=== PATIENT | male | born 1960 | race Caucasian/White ===

== ENCOUNTER → 2016-12-06 | Outpatient (CLI) | payer OTHER ==
[~2016-12-06] MED LIST: CLAR1TAB2 PO; COUM2.5T17 PO; IBUP200T45 PO; LOSARTAN PO; MORP15TASA PO; MULT1TAB10 PO; PERC5TAB12 PO; TRAM50TA2 PO; WARF-23
[2016-12-06 11:33] LABS: MEAN CORPUSCULAR HEMOGLOBIN 32.5 pg (27.0-33.0); MEAN CORPUSCULAR VOLUME 88.8 fl (80.0-96.0); RED CELL DISTRIBUTION WIDTH 12.7 % (11.5-14.5); WHITE BLOOD COUNT 5.4 K/mm3 (4.0-10.0)
[2016-12-06 11:36] LABS: MEAN CORPUSCULAR HGB CONC 36.1 g/dl (32.0-36.5)
[2016-12-06 11:47] LABS: INR 0.94
[2016-12-06 11:51] LABS: ALBUMIN 3.8 GM/DL (3.2-5.2); ALBUMIN/GLOBULIN RATIO 1.19 (1.00-1.93); ALKALINE PHOSPHATASE 107 U/L (45-117); ALT/SGPT 48 U/L (12-78); ANION GAP 7 MEQ/L (8-16); AST/SGOT 23 U/L (15-37); BILIRUBIN,TOTAL 0.5 MG/DL (0.2-1.0); BLOOD UREA NITROGEN 20 MG/DL (7-18); CALCIUM LEVEL 8.8 MG/DL (8.5-10.1); CARBON DIOXIDE LEVEL 30 MEQ/L (21-32); CHLORIDE LEVEL 106 MEQ/L (98-107); CREATININE FOR GFR 0.92 MG/DL (0.70-1.30); GLOMERULAR FILTRATION RATE > 60.0 (>56); GLUCOSE, FASTING 95 MG/DL (70-105); POTASSIUM SERUM 4.2 MEQ/L (3.5-5.1); SODIUM LEVEL 143 MEQ/L (136-145)
--- NOTE | 2016-12-06 12:18 | REP ---
CHEST X-RAY: Two views. HISTORY: Hypertension. No comparison radiographs. FINDINGS: The lungs are well inflated and clear. There is benign pleural thickening bilaterally. Pleural angles themselves are sharp. There are degenerative changes in the thoracic spine and aorta. Heart size is normal. Pulmonary vasculature is not increased. IMPRESSION: No acute disease. Signed by Juan Ramon Calvo MD 12/06/2016 05:23 P
--- NOTE | 2016-12-06 18:59 | ECGEPIP ---
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
== END ==
LOC: M ADMPAT 10:22
PROVIDERS: ATTEND Orthopaedic Surgery
DX: Z01.818 Encounter for other preprocedural examination (principal); M17.12 Unilateral primary osteoarthritis, left knee

== ENCOUNTER 2016-12-18 10:48 | Inpatient (IN) | payer OTHER ==
[2016-12-06 11:14] VITALS: BP 120/84
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
[~2016-12-18] VITALS: Ht 185.4 cm; Wt 124.7 kg
[~2016-12-18 10:48] MED LIST changes: -COUM2.5T17 PO; -MORP15TASA PO; -PERC5TAB12 PO; -WARF-23
[2016-12-18] MEDS ORDERED: LR 1,000 ML IV ONE (11:00)
[2016-12-18] MEDS ORDERED: LIDOCAINE 1% MDV 20ML VIAL SQ PRN (11:00)
[2016-12-18] MEDS ORDERED: ACETAMINOPHEN 500 MG TAB PO ONE (11:00)
[2016-12-18] MEDS ORDERED: WARF-23 (11:16)
[2016-12-18] MEDS ORDERED: fentaNYL 100 MCG/2 ML INJECTION (J3010) As Ordered ONE (12:13)
[2016-12-18] MEDS ORDERED: MIDAZOLAM INJ 2 MG/2 ML VIAL (J2250) As Ordered ONE (12:13)
[2016-12-18] MEDS ORDERED: MIDAZOLAM INJ 2 MG/2 ML VIAL (J2250) IV ONE (12:45)
[2016-12-18] MEDS ORDERED: fentaNYL 100 MCG/2 ML INJECTION (J3010) IV ONE (12:45)
[2016-12-18] MEDS ORDERED: EPINEPHrine INJ 1 MG/ML 1ML AMP As Ordered ONE (12:58)
[2016-12-18] MEDS ORDERED: ceFAZolin 1GM INJ (J0690) As Ordered ONE (12:58)
[2016-12-18] MEDS ORDERED: TRANEXAMIC ACID 100 MG/ML 10ML VIAL As Ordered ONE (12:58)
[2016-12-18] MEDS ORDERED: BUPIVACAINE LIPOSOME/PF 1.3% 20 ML VIAL (13.3MG/ML)(EXPAREL) As Ordered ONE (12:59)
[2016-12-18] MEDS ORDERED: ROPIvacaine 0.5% 30 ML INJECTION (J2795) ONE (13:09)
[2016-12-18] MEDS ORDERED: dexameTHASONE 10 MG/1 ML VIAL PRES.FREE (J1100) ONE (13:09)
[2016-12-18] MEDS ORDERED: MORPHINE 1MG/ML IN 0.9% NACL 100ML IV BAG As Ordered ONE (15:08)
[2016-12-18] MEDS ORDERED: NALBUPHINE HCL 10 MG/ML AMP (J2300) IV PRN (15:30)
[2016-12-18] MEDS ORDERED: EPIDURAL/PCA KEYS XX PRN (15:30)
[2016-12-18] MEDS ORDERED: NALOXONE INJ 0.4 MG/1 ML VIAL (J2310) IV PRN (15:30)
[2016-12-18] MEDS ORDERED: MORPHINE 1MG/ML IN 0.9% NACL 100ML IV BAG IV PRN (15:30)
[2016-12-18] MEDS ORDERED: ACETAMINOPHEN TAB 650MG DOSE (2X325MG) PO PRN (15:30)
[2016-12-18] MEDS ORDERED: fentaNYL 100 MCG/2 ML INJECTION (J3010) IV PRN (15:30)
[2016-12-18] MEDS ORDERED: FLEET ENEMA PR PRN (15:30)
[2016-12-18] MEDS ORDERED: LR 1,000 ML IV SCH (15:30)
[2016-12-18] MEDS ORDERED: diphenhydrAMINE INJ 50MG/ML VIAL (J1200) IV PRN (15:30)
[2016-12-18] MEDS ORDERED: ONDANSETRON 4MG/2ML VIAL (J2405) IV PRN ×2 (15:30)
[2016-12-18 16:30] VITALS: BP 135/74
[2016-12-18 17:00] VITALS: BP_SYST 132; BP_SYST 134; BP_DIAS 76; BP_DIAS 80
[2016-12-18] MEDS ORDERED: WARFARIN SOD 5 MG TAB PO ONE (17:00)
[2016-12-18 18:00] VITALS: BP 134/89
--- NOTE | 2016-12-18 18:17 | RO ---
DATE OF PROCEDURE: 12/18/2016 PREPROCEDURE DIAGNOSIS: Left knee degenerative arthritis. POSTPROCEDURE DIAGNOSIS: Left knee degenerative arthritis. OPERATIVE PROCEDURE: Left total knee arthroplasty using a size 4 cruciate retaining femoral component with a size 4 tibial tray and a 10 mm rotating platform polyethylene component with a 35 mm polyethylene button. All components were cemented. Prosthesis made by [employer], is a PFC knee. SURGEON: Myrna Godoy MD SR. DIRECTOR: Ayo Ribera ANESTHESIA: Spinal with left femoral nerve block. COMPLICATIONS: None. SPECIMENS: Joint surface. ESTIMATED BLOOD LOSS: Less than 20 mL. TOURNIQUET TIME: 61 minutes. DESCRIPTION OF PROCEDURE: Antibiotics were given intravenously preoperatively and then a left femoral nerve block and then a spinal anesthetic was induced. A tourniquet was placed left upper thigh and not inflated. Left lower extremity was prepped and draped in the usual sterile fashion and the leg elevated and after an appropriate time out, the tourniquet was inflated. Then, a longitudinal incision was made for a medial parapatellar arthrotomy approach to the knee. Bovie cautery was used to coagulate the crossing vessels. Subperiosteal dissection of the proximal medial tibia and proximal lateral tibia was performed and then we everted the patella and flexed the knee. Drill placed down the center of the femoral canal followed by the intramedullary nenita and the distal femoral cutting jig set at 5 degrees valgus cut at 10 mm resection level for a left knee. The block was pinned into position. Distal femoral cut performed. AP sizing jig measured for a size 4 component. The 3 degrees external rotation block was pinned into position, followed by the four-in-one block and then the anterior-posterior chamfer cuts were performed taking great care to protect the surrounding soft tissues. We then exposed the proximal tibia and used the extramedullary device to estimate being in line parallel to the mechanical axis of the tibia, referenced off the medial tibial condyle at 4 mm resection level. Block was pinned into position. Secondary check with the extramedullary nenita confirmed what appeared to be parallel to the mechanical axis. We then performed the proximal tibial osteotomy. Laminar curbing stonecutter was placed laterally and we performed a completion medial meniscectomy with debridement of posterior and medial osteophytes. We then placed a laminar curbing stonecutter medially and performed a completion lateral meniscectomy with debridement of posterior and lateral osteophytes. Spacer block, 10 mm, fit nicely in flexion and extension with good symmetry between flexion and extension gaps and there was good stability to varus-valgus stress testing. We then exposed the proximal tibia, sized for a #4 tibial tray which was pinned into position followed by the reamer and broach. Then the trial polyethylene and the trial femoral component, brought the knee into extension, everted the patella, performed a patellar osteotomy, sized for a 35 button. The lug holes were drilled. Patellar component was placed and the patellofemoral tracking was anatomic. We then drilled the lug holes for the femur, removed all the trial components, injected Exparel around the pericapsular tissues posteriorly and medially and laterally as well as the capsular incision tissues and then Mr. Ayo Ribera mixed the cement on the back table as I prepared the bony surfaces for cementing with a copious amount of pulsatile lavage irrigant solution. Mr. Ribera was also critical to the success of the procedure by helping to manipulate the knee and perform appropriate soft tissue retraction so I could perform the operation smoothly and efficiently. Once all the bony surfaces were thoroughly dried, I cemented the tibial tray, removed excess cement, placed the polyethylene then cemented the femoral component, removed excess cement, brought the knee into extension, everted the patella and cemented the patellar button into position and held it with a clamp, removed all the excess cement and held this position until the cemented hardened and as we did so we copiously pulsatile lavage irrigated out the knee joint once again and then instilled tranexamic acid and began closing the arthrotomy at the apex with two #0 PDS sutures and then one medial parapatellar stitch was placed and then we closed the capsule with a running #1 PDS Stratafix, double-armed. The tourniquet was released once the capsule had been closed and we irrigated between layers, closed the deep subdermal tissues with interrupted PDS sutures. The skin was closed with yue, closed with Adaptic dry sterile bulky dressing and then he was transferred to the recovery room in stable condition. There were no intraoperative complications.
[2016-12-18] MEDS: LOSARTAN 50 MG TAB PO SCH (18:18)
[2016-12-18] MEDS: hydroCHLOROthiazide 12.5 MG CAPSULE PO SCH (18:18)
[2016-12-18] MEDS: LR 1,000 ML IV SCH (18:22)
[2016-12-18 22:00] VITALS: BP 144/88
[2016-12-19] VITALS (7 sets, daily range): BP systolic 113–167; BP diastolic 73–84
[2016-12-19] MEDS: LR 1,000 ML IV SCH (04:00)
[2016-12-19] MEDS ORDERED: PERCOCET 5MG/325MG TAB PO PRN (06:45)
[2016-12-19] MEDS ORDERED: ONDANSETRON 4 MG TAB (S0181) PO PRN (06:45)
[2016-12-19 07:03] LABS: MEAN CORPUSCULAR HEMOGLOBIN 31.1 pg (27.0-33.0); MEAN CORPUSCULAR HGB CONC 35.1 g/dl (32.0-36.5); MEAN CORPUSCULAR VOLUME 88.5 fl (80.0-96.0); RED CELL DISTRIBUTION WIDTH 12.8 % (11.5-14.5); WHITE BLOOD COUNT 15.8 10^3/uL (4.0-10.0)
[2016-12-19 07:15] LABS: INR 1.01
[2016-12-19 07:39] LABS: ANION GAP 9 MEQ/L (8-16); BLOOD UREA NITROGEN 12 MG/DL (7-18); CALCIUM LEVEL 8.8 MG/DL (8.5-10.1); CARBON DIOXIDE LEVEL 27 MEQ/L (21-32); CHLORIDE LEVEL 104 MEQ/L (98-107); CREATININE FOR GFR 0.82 MG/DL (0.70-1.30); GLOMERULAR FILTRATION RATE > 60.0 (>56); GLUCOSE, FASTING 134 MG/DL (70-105); POTASSIUM SERUM 4.1 MEQ/L (3.5-5.1); SODIUM LEVEL 140 MEQ/L (136-145)
[2016-12-19] MEDS: MOM 30ML SUSPENSION UDC PO SCH (08:47)
[2016-12-19] MEDS: MIRALAX *UNIT DOSE* 17GM PACKET PO SCH (08:47)
[2016-12-19] MEDS: hydroCHLOROthiazide 12.5 MG CAPSULE PO SCH (08:48)
[2016-12-19] MEDS: LOSARTAN 50 MG TAB PO SCH (08:48)
[2016-12-19] MEDS: SENOKOT S TAB PO SCH ×2 (08:48→21:27)
[2016-12-19] MEDS: PERCOCET 5MG/325MG TAB PO PRN ×4 (08:49→23:59)
[2016-12-19] MEDS ORDERED: MIDAZOLAM INJ 5 MG/ML VIAL (J2250) As Ordered ONE (10:52)
[2016-12-19] MEDS ORDERED: fentaNYL 100 MCG/2 ML INJECTION (J3010) As Ordered ONE (10:52)
[2016-12-19] MEDS ORDERED: PHENYLephrine HCL 500 MCG/5 ML (100MCG/ML) SYRINGE (J2370) As Ordered ONE (10:53)
[2016-12-19] MEDS ORDERED: PROPOFOL 200 MG/20 ML VIAL As Ordered ONE (10:53)
[2016-12-19] MEDS ORDERED: LIDOCAINE 2% INJ 100 MG/5 ML SDV (FOR ANES.) As Ordered ONE (10:53)
--- NOTE | 2016-12-19 15:23 | REP ---
LEFT KNEE, TWO VIEWS: Two views of the left knee performed. There is a total knee prosthesis in good position. The structures are well aligned. Metallic skin yue are seen anteriorly. The visualized osseous structures are intact. Signed by Cristian Chester MD 12/19/2016 04:17 P
[2016-12-19] MEDS ORDERED: WARFARIN SOD 5 MG TAB PO ONE (17:00)
[2016-12-19] MEDS: MORPHINE 15 MG SA TAB PO SCH (21:27)
[2016-12-20] MEDS: PERCOCET 5MG/325MG TAB PO PRN ×5 (03:58→22:14)
[2016-12-20 06:00] VITALS: BP 121/81
[2016-12-20 07:10] LABS: MEAN CORPUSCULAR HEMOGLOBIN 31.1 pg (27.0-33.0); MEAN CORPUSCULAR HGB CONC 34.6 g/dl (32.0-36.5); MEAN CORPUSCULAR VOLUME 89.9 fl (80.0-96.0); RED CELL DISTRIBUTION WIDTH 13.1 % (11.5-14.5); WHITE BLOOD COUNT 13.1 10^3/uL (4.0-10.0)
[2016-12-20 07:23] LABS: INR 1.14
[2016-12-20] MEDS ORDERED: ENOXAPARIN 40 MG/0.4 ML SYRINGE (J1650) SC ONE (07:30)
[2016-12-20] MEDS ORDERED: COUM2.5T17 PO (07:35)
[2016-12-20] MEDS ORDERED: PERC5TAB12 PO (07:35)
[2016-12-20 07:41] LABS: ANION GAP 5 MEQ/L (8-16); BLOOD UREA NITROGEN 11 MG/DL (7-18); CALCIUM LEVEL 8.6 MG/DL (8.5-10.1); CARBON DIOXIDE LEVEL 30 MEQ/L (21-32); CHLORIDE LEVEL 102 MEQ/L (98-107); CREATININE FOR GFR 0.85 MG/DL (0.70-1.30); GLOMERULAR FILTRATION RATE > 60.0 (>56); GLUCOSE, FASTING 121 MG/DL (70-105); POTASSIUM SERUM 3.6 MEQ/L (3.5-5.1); SODIUM LEVEL 137 MEQ/L (136-145)
[2016-12-20] MEDS: MOM 30ML SUSPENSION UDC PO SCH (08:31)
[2016-12-20] MEDS: MIRALAX *UNIT DOSE* 17GM PACKET PO SCH (08:31)
[2016-12-20] MEDS: MORPHINE 15 MG SA TAB PO SCH ×2 (08:31→20:46)
[2016-12-20] MEDS: LOSARTAN 50 MG TAB PO SCH (08:32)
[2016-12-20] MEDS: hydroCHLOROthiazide 12.5 MG CAPSULE PO SCH (08:32)
[2016-12-20] MEDS: SENOKOT S TAB PO SCH ×2 (08:33→20:46)
[2016-12-20] MEDS ORDERED: MORP15TASA PO (09:04)
[2016-12-20] MEDS ORDERED: MORPHINE 4 MG/ML 1ML SYRINGE IV ONE (10:45)
[2016-12-20 14:00] VITALS: BP 150/85
[2016-12-20] MEDS ORDERED: WARFARIN SOD 5 MG TAB PO ONE (17:00)
[2016-12-21] VITALS: BP 134/83
[2016-12-21] MEDS: PERCOCET 5MG/325MG TAB PO PRN ×3 (04:39→15:40)
[2016-12-21 06:00] VITALS: BP 148/63
[2016-12-21 07:12] LABS: MEAN CORPUSCULAR HEMOGLOBIN 31.4 pg (27.0-33.0); MEAN CORPUSCULAR HGB CONC 34.7 g/dl (32.0-36.5); MEAN CORPUSCULAR VOLUME 90.7 fl (80.0-96.0); WHITE BLOOD COUNT 11.2 10^3/uL (4.0-10.0)
[2016-12-21 07:26] LABS: INR 1.11
[2016-12-21 07:44] LABS: ANION GAP 9 MEQ/L (8-16); BLOOD UREA NITROGEN 14 MG/DL (7-18); CALCIUM LEVEL 8.5 MG/DL (8.5-10.1); CARBON DIOXIDE LEVEL 29 MEQ/L (21-32); CHLORIDE LEVEL 100 MEQ/L (98-107); CREATININE FOR GFR 0.92 MG/DL (0.70-1.30); GLOMERULAR FILTRATION RATE > 60.0 (>56); GLUCOSE, FASTING 110 MG/DL (70-105); POTASSIUM SERUM 4.1 MEQ/L (3.5-5.1); SODIUM LEVEL 138 MEQ/L (136-145)
[2016-12-21] MEDS ORDERED: ENOXAPARIN 40 MG/0.4 ML SYRINGE (J1650) SC ONE (08:00)
[2016-12-21] MEDS ORDERED: INFLUENZA QUADRIVALENT PF VACCINE 0.5ML SYRINGE (90686) IM ONE (09:00)
[2016-12-21 09:17] VITALS: BP 148/63
[2016-12-21] MEDS: MOM 30ML SUSPENSION UDC PO SCH (09:17)
[2016-12-21] MEDS: hydroCHLOROthiazide 12.5 MG CAPSULE PO SCH (09:17)
[2016-12-21] MEDS: LOSARTAN 50 MG TAB PO SCH (09:17)
[2016-12-21] MEDS: MORPHINE 15 MG SA TAB PO SCH (09:17)
[2016-12-21] MEDS: MIRALAX *UNIT DOSE* 17GM PACKET PO SCH (09:18)
[2016-12-21] MEDS: SENOKOT S TAB PO SCH (09:18)
--- NOTE | 2016-12-25 15:44 | DSES ---
DATE OF ADMISSION: 12/18/2016 DATE OF DISCHARGE: 12/21/2016 ADMISSION DIAGNOSIS: Osteoarthritis left knee. OTHER DIAGNOSES: Hypertension, seasonal allergies. ATTENDING PHYSICIAN: Dr. Godoy. SURGERY PERFORMED: Left total knee arthroplasty. DISCHARGE DIAGNOSIS: Osteoarthritis left knee status post left total knee arthroplasty. HISTORY: This is a pleasant 56-year-old male patient with progressively worsening left knee pain and stiffness who failed to improve with conservative management and he was admitted for elective left knee replacement. HOSPITAL COURSE: The patient was admitted on day of surgery, underwent a left total knee arthroplasty which was uneventful. He did well in the postoperative period. His hospital course was without complications. He was up with physical therapy per their protocol. His pain was controlled. On the day of discharge he was doing well, weightbearing as tolerated on his left lower extremity. He will move his left knee to prevent stiffness. He will use adjusted dose Coumadin and MARYA stockings for 30 days postoperatively for DVT prophylaxis. He will resume his preoperative medications and diet. He was given instructions to include but not limited to wound monitoring and activity limitations. Please refer to the medical record for further details.
== END 2016-12-21 17:35 | disposition home or self-care (01) | DRG 302 ==
LOC: M OR 10:48 → M MS5PR 16:15
PROVIDERS: ADMIT Orthopaedic Surgery; ATTEND Orthopaedic Surgery
PROC: 0SRC0J9 Replacement of Right Knee Joint with Synthetic Substitute, Cemented, Open Approach (ICD-10-PCS; principal; 2016-12-18 13:00)
DX: M17.12 Unilateral primary osteoarthritis, left knee (principal); Z79.01 Long term (current) use of anticoagulants; Z79.899 Other long term (current) drug therapy; I10 Essential (primary) hypertension

== ENCOUNTER → 2016-12-25 | Outpatient (REF) | payer OTHER ==
[~2016-12-25] MED LIST changes: +COUM2.5T17 PO; +MORP15TASA PO; +PERC5TAB12 PO; +WARF-23
[2016-12-25 16:28] LABS: INR 1.39
== END ==
LOC: M SHH 15:36
PROVIDERS: ATTEND Nurse Practitioner Family
DX: Z79.01 Long term (current) use of anticoagulants (principal)

== ENCOUNTER → 2016-12-28 | Outpatient (REF) | payer OTHER ==
[2016-12-28 15:58] LABS: INR 1.65
== END ==
LOC: M SHH 15:25
PROVIDERS: ATTEND Nurse Practitioner Family
DX: Z79.01 Long term (current) use of anticoagulants (principal)

== ENCOUNTER → 2017-01-01 | Outpatient (REF) | payer OTHER ==
[2017-01-01 12:45] LABS: INR 2.1
== END ==
LOC: M LABDRAW1 10:37
PROVIDERS: ATTEND Nurse Practitioner Family
DX: Z79.01 Long term (current) use of anticoagulants (principal)

== ENCOUNTER → 2017-01-04 | Outpatient (REF) | payer OTHER ==
[2017-01-04 14:44] LABS: INR 1.86
== END ==
LOC: M SHH 14:02
PROVIDERS: ATTEND Nurse Practitioner Family
DX: Z79.01 Long term (current) use of anticoagulants (principal)

== ENCOUNTER → 2017-01-08 | Outpatient (REF) | payer OTHER ==
[2017-01-08 12:18] LABS: INR 2.29
== END ==
LOC: M SHH 11:45 → M LAB REF 11:45
PROVIDERS: ATTEND Nurse Practitioner Family
DX: Z79.01 Long term (current) use of anticoagulants (principal)

== ENCOUNTER → 2017-06-08 | Outpatient (CLI) | payer OTHER | LOC: M RAD 17:46 | DX: M50.321 Other cervical disc degeneration at C4-C5 level (principal); M50.322 Other cervical disc degeneration at C5-C6 level; M25.512 Pain in left shoulder | CPT/HCPCS: 72052 ==

== ENCOUNTER 2017-06-13 08:58 | Emergency (ER) | payer OTHER | END 2017-06-13 12:23 | disposition home or self-care (01) | LOC: M ED 08:58 | DX: S06.0X9A Concussion with loss of consciousness of unspecified duration, initial encounter (principal); W00.9XXA Unspecified fall due to ice and snow, initial encounter; Y92.89 Other specified places as the place of occurrence of the external cause; I10 Essential (primary) hypertension; G47.33 Obstructive sleep apnea (adult) (pediatric); Z79.899 Other long term (current) drug therapy | CPT/HCPCS: 70450 ==

== ENCOUNTER 2018-06-07 07:56 | Day surgery (SDC) | payer OTHER ==
[~2018-06-07] VITALS: Ht 185.4 cm; Wt 125.2 kg
[~2018-06-07 07:56] MED LIST changes: +ATOR1TAB19 PO; +LOSARTAN-HCTZ PO; +ZOFR4TAB14 PO
[2018-06-07] MEDS ORDERED: NS 1,000 ML IV ONE (08:30)
[2018-06-07] MEDS ORDERED: LIDOCAINE 2% INJ 100 MG/5 ML SDV (FOR ANES.) As Ordered ONE (09:05)
[2018-06-07] MEDS ORDERED: PROPOFOL 500 MG/50 ML VIAL As Ordered ONE (09:05)
--- NOTE | 2018-06-07 09:23 | ROOR ---
Patient Name: Franklin Ventura Procedure Date: 06/07/2018 9:02 AM Date of : 1960 Age: 57 Room: [facility] Gender: Male Note Status: Finalized Procedure: Colonoscopy Indications: Positive fecal immunochemical test Providers: Qamar RO MD Referring MD: Alejandra Yost MD Requesting Provider: Medicines: Monitored Anesthesia Care Complications: No immediate complications. Procedure: Pre-Anesthesia Assessment: - The heart rate, respiratory rate, oxygen saturations, blood pressure, adequacy of pulmonary ventilation, and response to care were monitored throughout the procedure. The Colonoscope was introduced through the anus and advanced to the cecum, identified by appendiceal orifice and ileocecal valve. The colonoscopy was performed without difficulty. The patient tolerated the procedure well. The quality of the bowel preparation was good. Findings: The perianal and digital rectal examinations were normal. Two sessile polyps were found in the ascending colon. The polyps were diminutive in size. These polyps were removed with a cold snare. Resection and retrieval were complete. Small Internal Hemorrhoids. The exam was otherwise without abnormality on direct and retroflexion views. Impression: - Two diminutive polyps in the ascending colon, removed with a cold snare. Resected and retrieved. - Small Internal Hemorrhoids. - The examination was otherwise normal on direct and retroflexion views. Recommendation: - Repeat colonoscopy in 5 years for surveillance. Qamar Ro MD Qamar RO MD 06/07/2018 9:22:38 AM This report has been signed electronically. Number of Addenda: 0 Note Initiated On: 06/07/2018 9:02 AM Estimated Blood Loss: Estimated blood loss: none.
[2018-06-07 09:52] VITALS: BP 148/90
== END 2018-06-07 09:54 | disposition home or self-care (01) ==
LOC: M OPP 07:56
PROVIDERS: ATTEND Internal Medicine Gastroenterology
DX: D12.2 Benign neoplasm of ascending colon (principal); R19.5 Other fecal abnormalities; G47.30 Sleep apnea, unspecified; Z79.899 Other long term (current) drug therapy; Z80.0 Family history of malignant neoplasm of digestive organs; Z80.3 Family history of malignant neoplasm of breast

== ENCOUNTER → 2019-11-26 | Outpatient (CLI) | payer OTHER, BC ==
[~2019-11-26] MED LIST changes: +ECOT81TA5 PO; +LOSA100T50 PO; +ZYRTTAB8 PO
== END ==
LOC: M LABSMTC 10:35
PROVIDERS: ATTEND Anesthesiology
DX: Z11.59 Encounter for screening for other viral diseases (principal)

== ENCOUNTER → 2019-11-26 | Outpatient (CLI) | payer OTHER, SELFPAY ==
[2019-11-26 13:02] LABS: HEMATOCRIT 51.6 % (42.0-52.0); HEMOGLOBIN 17.4 g/dl (13.5-17.5); MEAN CORPUSCULAR HEMOGLOBIN 31.4 pg (27.0-33.0); MEAN CORPUSCULAR HGB CONC 33.7 g/dl (32.0-36.5); MEAN CORPUSCULAR VOLUME 93.1 fl (80.0-96.0); PLATELET COUNT, AUTOMATED 210 10^3/uL (150-450); RED BLOOD COUNT 5.54 10^6/uL (4.30-6.10)
[2019-11-26 13:12] LABS: INR 0.92; PROTHROMBIN TIME 12.5 SECONDS (11.8-14.0)
[2019-11-26 13:25] LABS: ALBUMIN 3.6 GM/DL (3.2-5.2); ALT/SGPT 65 U/L (12-78); BILIRUBIN,TOTAL 0.4 MG/DL (0.2-1.0); BLOOD UREA NITROGEN 12 MG/DL (7-18); CALCIUM LEVEL 8.7 MG/DL (8.8-10.2); CARBON DIOXIDE LEVEL 25 MEQ/L (21-32); CHLORIDE LEVEL 113 MEQ/L (98-107); CREATININE FOR GFR 0.97 MG/DL (0.70-1.30); GLOMERULAR FILTRATION RATE > 60.0 (>49); GLUCOSE, FASTING 134 MG/DL (70-100); POTASSIUM SERUM 4.1 MEQ/L (3.5-5.1); SODIUM LEVEL 144 MEQ/L (136-145); TOTAL PROTEIN 6.9 GM/DL (6.4-8.2)
[2019-11-26 13:41] LABS: ERYTHROCYTE SEDIMENTATION RATE 4 mm/hr (0-20)
--- NOTE | 2019-12-04 14:46 | ECGEPIP ---
[facility] Test Date: 2019-11-26 Pat Name: EDILSON GOMEZ Department: Room: - Gender: Male Surgery Attendant: AYAN : 1960 Requested By: Myrna Rodriguez Order Number: [id number] Reading MD: Edilson Anthony Measurements Intervals [place] Rate: 72 P: 44 OR: 153 QRS: -7 QRSD: 101 T: 27 QT: 367 QTc: 402 Interpretive Statements SINUS RHYTHM NORMAL ECG SEE SCANNED DOWNTIME REPORT
--- NOTE | 2019-12-16 11:10 | REP ---
CHEST X-RAY CLINICAL: Preoperative assessment. TECHNIQUE: PA and lateral. COMPARISON: 12/06/2016. FINDINGS: Mediastinal and cardiac silhouette are normal. Lung otero are clear. No acute consolidation, effusion, or pneumothorax. Skeletal structures are intact. IMPRESSION: Normal chest x-ray. No acute cardiopulmonary process or focal consolidation. MTDD
== END ==
LOC: M LAB 11:08
PROVIDERS: ATTEND Orthopaedic Surgery
DX: M17.11 Unilateral primary osteoarthritis, right knee (principal)

== ENCOUNTER 2019-12-01 08:35 | Inpatient (IN) | payer OTHER, BC ==
--- NOTE | 2019-11-29 21:42 | HPE ---
DATE OF ANTICIPATED ADMISSION: 12/01/2019 ATTENDING PHYSICIAN: Dr. Godoy CHIEF COMPLAINT: Right knee pain and stiffness. HISTORY: Patient is a 59-year-old male with progressively worsening right knee pain and stiffness. He failed to improve with conservative measures. He continues to have symptoms with weightbearing activities and activities of daily living. He has consented for an elective right total knee arthroplasty with Dr. Godoy for his continued symptoms. Medical optimization pending with Dr. Mary Castro. CURRENT MEDICATIONS: - Hyzaar 100/12.5 mg daily - tramadol 50 mg daily - Valtrex 1000 mg twice daily as needed - EpiPen if needed - Benadryl 25 mg if needed - Zyrtec 10 mg daily ALLERGIES: There are no known drug allergies. He does have environmental allergies. CHRONIC MEDICAL CONDITIONS: 1. Seasonal allergies 2. Hypertension. 3. Obstructive sleep apnea. PAST SURGICAL HISTORY: Left total knee arthroplasty. SOCIAL HISTORY: Patient denies tobacco use. Alcohol intake rarely. REVIEW OF SYSTEMS: Patient denies fever, chills,, nausea, vomiting, or diarrhea. Denies chest pain, shortness of breath, lightheadedness, dizziness, or headaches. Denies any recent upper respiratory or urinary tract infection symptoms. Denies any abdominal pain. He does continue to have right knee pain with weightbearing activities and activities of daily living. PHYSICAL EXAMINATION: GENERAL: Well-nourished, well-developed male in no apparent distress. He is alert, oriented, and cooperative. Mood and affect are appropriate. VITAL SIGNS: Height 73.5 inches, weight 279.6 pounds, temperature 96.5, respirations 14, blood pressure 110/70, heart rate 51. HEART: Regular rate and rhythm. LUNGS: Clear to auscultation bilaterally. Breathing is regular and nonlabored. ABDOMEN: Soft and nontender. Bowel sounds are present. MUSCULOSKELETAL: Patient is walking with a limp favoring the right lower extremity. SKIN: Of the right knee is intact without any gross abnormalities. He can extend knee fully and flex to 95 degrees. Right lower extremity strength is 5/5. No hip irritability elicited with range of motion testing. Calf is soft, nontender to palpation with no palpable cords noted. He is neurovascular intact distally. There is mild tenderness along the medial joint line. LABORATORY DATA: Prothrombin time 12.5. INR 0.92. Comprehensive metabolic profile: Fasting glucose elevated at 134. BUN 12, creatinine 0.97, GFR greater than 60. Sodium 144, potassium 4.1, chloride elevated at 113, carbon dioxide 25. Anion gap decreased at 6. Calcium decreased at 8.7. AST elevated at 45, ALT 65, alkaline phosphatase 112, total bilirubin 0.4, total protein 6.9, albumin 3.6, albumin/globulin ratio 1.1. Complete blood count: ESR 4, WBC 7, RBC 5.54, hemoglobin 17.4, hematocrit 51.6, platelets 210. IMPRESSION: Right knee degenerative arthritis with x-rays notable for end-stage degenerative changes. PLAN: Patient has consented for an elective right total knee arthroplasty with Dr. Godoy for his continued symptoms. Medical optimization pending with Dr. Silverio Castro. Patient will start using his Bactroban and Hibiclens as directed. He understands to follow his primary customer care agent's recommendations for taking his daily medications and when to stop his anticoagulants if applicable. Patient will be nothing by mouth after midnight the night prior to surgery. JAS
[2019-12-01] VITALS (7 sets, daily range): BP systolic 114–133; BP diastolic 65–82
[~2019-12-01] VITALS: Ht 190.5 cm; Wt 125.2 kg
[~2019-12-01 08:35] MED LIST changes: -ECOT81TA5 PO; +LR 1,000 ML IV ONE; +MIDAZOLAM INJ 2MG/2ML VIAL (J2250 PER 1MG) IV SCH
[2019-12-01] MEDS ORDERED: ceFAZolin 2 GM/D5W 50 ML IV BAG (J0690 PER 500MG) As Ordered ONE (08:55)
[2019-12-01] MEDS ORDERED: ACETAMINOPHEN 500 MG TAB As Ordered ONE (08:55)
[2019-12-01] MEDS ORDERED: ceFAZolin SOD 2 GM in IV 1 EA IV ONE (09:30)
[2019-12-01] MEDS ORDERED: ACETAMINOPHEN 500 MG TAB PO ONE (09:30)
[2019-12-01] MEDS ORDERED: ceFAZolin 1GM VIAL (J0690 PER 500MG) As Ordered ONE (09:45)
[2019-12-01] MEDS ORDERED: TRANEXAMIC ACID 100 MG/ML 10ML VIAL As Ordered ONE (09:45)
[2019-12-01] MEDS ORDERED: BUPIVACAINE HCL 0.25% 10ML VIAL As Ordered ONE (09:45)
[2019-12-01] MEDS ORDERED: BUPIVACAINE LIPOSOME/PF 1.3% 20ML VIAL (13.3MG/ML)(EXPAREL)(C9290 PER1MG) As Ordered ONE (09:45)
[2019-12-01] MEDS ORDERED: ONDANSETRON 4MG/2ML VIAL As Ordered ONE (10:06)
[2019-12-01] MEDS ORDERED: LIDOCAINE 2% 100MG/5ML SDV (FOR ANES.) As Ordered ONE (10:06)
[2019-12-01] MEDS ORDERED: propofoL 200 MG/20 ML VIAL As Ordered ONE (10:06)
[2019-12-01] MEDS ORDERED: MIDAZOLAM INJ 2MG/2ML VIAL (J2250 PER 1MG) As Ordered ONE ×3 (10:06→11:55)
[2019-12-01] MEDS ORDERED: fentaNYL 100 MCG/2 ML INJECTION (J3010) As Ordered ONE ×2 (10:06→10:26)
[2019-12-01] MEDS ORDERED: fentaNYL 100 MCG/2 ML INJECTION (J3010) IV ONE (11:30)
[2019-12-01] MEDS ORDERED: PHENYLephrine HCL 500 MCG/5 ML (100MCG/ML) SYRINGE (J2370) As Ordered ONE (11:36)
[2019-12-01] MEDS ORDERED: ACETAMINOPHEN 1000MG 100ML IV BTL (OFIRMEV) (J0131 PER 10MG) As Ordered ONE (11:53)
[2019-12-01] MEDS: EPINEPHrine INJ 1 MG/ML 1ML AMP As Ordered ONE (12:11)
[2019-12-01] MEDS ORDERED: fentaNYL 100 MCG/2 ML INJECTION (J3010) IV PRN (13:30)
[2019-12-01] MEDS ORDERED: PERCOCET 5MG/325MG TAB PO PRN ×3 (13:30→20:30)
[2019-12-01] MEDS ORDERED: LR 1,000 ML IV SCH ×2 (13:30)
[2019-12-01] MEDS ORDERED: MORPHINE 4 MG/ML 1ML VIAL/SYRINGE (J2270) IV PRN (13:30)
[2019-12-01] MEDS ORDERED: ONDANSETRON 4MG/2ML VIAL IV PRN ×2 (13:30)
[2019-12-01] MEDS ORDERED: oxyCODONE 5MG TAB PO PRN (13:30)
[2019-12-01] MEDS ORDERED: ROPIvacaine 0.5% 30ML INJECTION (J2795 PER 1MG) ONE (13:39)
[2019-12-01] MEDS ORDERED: EPINEPHrine INJ 1 MG/ML 1ML AMP ONE (13:39)
[2019-12-01] MEDS ORDERED: dexameTHASONE 10MG/1ML VIAL PRES.FREE (J1100 PER 1MG) ONE (13:39)
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
[2019-12-01] MEDS: ceFAZolin SOD 2 GM in IV 1 EA IV SCH (18:09)
[2019-12-01] MEDS: ASPIRIN 81 MG CHEW TABLET PO SCH (20:46)
[2019-12-01] MEDS: PERCOCET 5MG/325MG TAB PO PRN (20:48)
[2019-12-02] MEDS: PERCOCET 5MG/325MG TAB PO PRN ×3 (01:30→12:40)
[2019-12-02 02:00] VITALS: BP 123/78
[2019-12-02] MEDS: ceFAZolin SOD 2 GM in IV 1 EA IV SCH ×2 (02:43→11:24)
[2019-12-02 06:00] VITALS: BP 144/86
[2019-12-02] MEDS ORDERED: ECOT81TA5 PO (06:34)
[2019-12-02] MEDS ORDERED: PERC5TAB12 PO (06:34)
[2019-12-02 06:45] LABS: HEMATOCRIT 43.2 % (42.0-52.0); HEMOGLOBIN 14.9 g/dl (13.5-17.5); MEAN CORPUSCULAR HEMOGLOBIN 31.4 pg (27.0-33.0); MEAN CORPUSCULAR HGB CONC 34.5 g/dl (32.0-36.5); MEAN CORPUSCULAR VOLUME 90.9 fl (80.0-96.0); PLATELET COUNT, AUTOMATED 211 10^3/uL (150-450); RED BLOOD COUNT 4.75 10^6/uL (4.30-6.10); WHITE BLOOD COUNT 16.7 10^3/uL (4.0-10.0)
[2019-12-02 07:15] LABS: ALBUMIN 3.4 GM/DL (3.2-5.2); ALT/SGPT 54 U/L (12-78); BILIRUBIN,TOTAL 0.4 MG/DL (0.2-1.0); BLOOD UREA NITROGEN 15 MG/DL (7-18); CALCIUM LEVEL 8.9 MG/DL (8.8-10.2); CARBON DIOXIDE LEVEL 23 MEQ/L (21-32); CHLORIDE LEVEL 107 MEQ/L (98-107); CREATININE FOR GFR 0.89 MG/DL (0.70-1.30); GLOMERULAR FILTRATION RATE > 60.0 (>49); GLUCOSE, FASTING 129 MG/DL (70-100); POTASSIUM SERUM 4.5 MEQ/L (3.5-5.1); SODIUM LEVEL 137 MEQ/L (136-145); TOTAL PROTEIN 6.6 GM/DL (6.4-8.2)
[2019-12-02] MEDS: ASPIRIN 81 MG CHEW TABLET PO SCH (08:23)
[2019-12-02] MEDS ORDERED: MIRALAX *UNIT DOSE* 17GM PACKET PO SCH (09:00)
[2019-12-02] MEDS ORDERED: MOM 30ML SUSPENSION UDC PO SCH (09:00)
[2019-12-02] MEDS ORDERED: FLUBLOK(EGG FREE)(QUAD)INFLUENZA VACC 0.5ML SYRINGE 18YRS & OLDER IM ONE (09:00)
[2019-12-02 10:00] VITALS: BP 137/78
--- NOTE | 2019-12-02 11:05 | IPNPDOC ---
Date Seen The patient was seen on 12/02/19. Progress Note SUBJECTIVE: patient seen and examined at bedside. Doing well. No acute events overnight. Pain is well controlled. denies chest pain, fever, chills, n/v/d. OBJECTIVE PHYSICAL EXAMINATION: VITAL SIGNS: Please see below. General: NAD, comfortable HEENT: PERRLA, EOMI, sclerae clear Neck: supple, normal ROM, no JVD Resp: lungs CTAB, no wheeze, no rales, no crackles CVS: RRR, normal S1, S2, no murmursAbdo: soft, no masses, no hepatosplenomegaly, BS+, no rebound tenderness Extremities: no edema, pulses 2+ MSK: R knee in ANEL wrap. Dressings clear, intact. Neuro: no focal neuro deficits, moving all 4 extremities Psych: calm, cooperative, AAO x 3 LABORATORY DATA, IMAGING STUDIES, MICROBIOLOGY: Please see below. DVT prophylaxis ordered?: Y ASSESSMENT AND PLAN: 59 year old male with PMH of KIMBERLEY, hypertension, seasonal allergies was admitted for elective total knee arthroplasty. Medicine consulted for HTN management. PROBLEMS: 1. S/p R total knee arthroplasty - DVT ppx, pain control per ortho service - PT/OT post op 2. HTN - BMP wnl - BP 137/78 - resume home dose losartan - f/u PCP 3. KIMBERLEY - use home CPAP 4. Allergies - cetirizine. DISPOSITION: DC home with services once cleared by ortho service VS, I&O, 24H, Fishbone Vital Signs/I&O Vital Signs Date Time Temp Pulse Resp B/P (MAP) Pulse Ox O2 Delivery O2 Flow Rate FiO2 12/02/19 10:00 99.2 84 19 137/78 (97) 97 Room Air 12/01/19 13:05 2 I&O- Last 24 Hours up to 6 AM 12/02/19 05:59 Intake Total 2230 ml Output Total 1175 ml Balance 1055 ml Laboratory Data 24H LABS Laboratory Tests 2 12/02/19 05:25: Nucleated Red Blood Cells % (auto) 0.0, Anion Gap 7L, Glomerular Filtration Rate > 60.0, Calcium Level 8.9, Total Bilirubin 0.4, Aspartate Amino Transf (AST/SGOT ) 30, Alanine Aminotransferase (ALT/SGPT) 54, Alkaline Phosphatase 85, Total Protein 6.6, Albumin 3.4, Albumin/Globulin Ratio 1.1 CBC/BMP Laboratory Tests 12/02/19 05:25 SURESH PRITCHETT MD Dec 02, 2019 11:05
--- NOTE | 2019-12-15 13:32 | RO ---
DATE OF OPERATION: 12/01/2019 PREOPERATIVE DIAGNOSIS: Right knee degenerative arthritis. POSTOPERATIVE DIAGNOSIS: Right knee degenerative arthritis. PROCEDURE: Right total knee arthroplasty. SURGEON: Myrna Godoy M.D. STRANDING MACHINE OPERATOR: Cachorro Harris PA-C ANESTHESIA: Right femoral nerve block with spinal. COMPLICATIONS: None. ESTIMATED BLOOD LOSS: 20 mL SPECIMENS: Joint surface. PROSTHESIS USED: Size 7 cruciate retaining Attune femoral component with a size 7 tibial tray and a 38 mm polyethylene button. All components were cemented. The prosthesis was made by [employer]. PROCEDURE: Antibiotics were given intravenously preoperatively and a successful right femoral nerve block and then a spinal anesthetic was induced. The tourniquet was placed on the right upper thigh and not inflated. The right lower extremity was carefully prepped and draped in the usual sterile fashion, elevated and tourniquet was inflated to 250 mmHg for 60 minutes. A longitudinal incision was made for medial parapatellar approach to the knee. Bovie cautery was used to coagulate crossing vessels, medial parapatellar arthrotomy was performed. Subperiosteal dissection around the proximal medial and lateral tibial plateau was performed. The patella was everted, the ACL debrided and the knee was flexed. The drill was placed down the center of the femoral canal followed by the intramedullary nenita and the distal femoral cutting jig set at 9 mm resection level at 5 degree valgus for right knee. The AP sizing jig measured for size 7, 3 degrees external rotation was dialed in and jig was pinned into position followed by the [id number] and then we performed anterior, posterior and then chamfer cuts taking great care to protect the surrounding soft tissues. The notchplasty was performed using the jig and then we exposed the proximal tibia, used the extramedullary alignment jig to estimate being parallel to the mechanical axis, referencing off the medial tibial condyle at 4 mm resection level. The block was pinned into position, secondary check with the extramedullary nenita confirmed we appeared to be parallel to the mechanical axis. Thus a proximal tibial osteotomy was performed. The laminar patient advocate was placed medially and we performed a completion medial meniscectomy with debridement of posterolateral osteophytes. We then placed a laminar patient advocate medially and performed a completion lateral meniscectomy with debridement of posterolateral osteophytes. The spacer block was then trialed but it was quite tight both symmetrical in flexion and extension. Thus I elected to take an additional 2 mm from the proximal tibia. Jig was reapplied and then we took 2 mm additional cut off the proximal tibia and then spacer block 6 mm fit very nicely at this point with good stability to varus-valgus stress testing. We then exposed the proximal tibia, sized for a #7 tibial tray which was pinned into position followed by the reamer and the broach. The trial polyethylene was placed followed by trial femoral component, brought the knee into extension, everted the patella, performed a patellar osteotomy, sized for 38 button. Lug holes were drilled, trial placed and the patellofemoral tracking was anatomic. We then drilled the lug holes for the femur, removed all the trial components, placed Exparel on the subperiosteal tissues around the distal femur and proximal tibia and then my employment assistant, Mr. Cachorro Harris mixed the cement on the back table as I prepared the bony surfaces for cementing with copious amount of pulsatile lavage irrigant solution. He was also critical to the success of this difficult surgery by helping with appropriate soft tissue retraction, helped to manipulate the knee, helped close the wound, helped to prepare the patient, helped to mix the cement amongst many other tasks to allow me to perform the operation smoothly, efficiently and safely. Once all the bony surfaces were thoroughly dried, we cemented the tibial tray, removed excess cement and placed the polyethylene, cemented the femoral component, removed excess cement and brought the knee into extension and cemented the patellar button, removed excess cement and held the knee in full extension with the patellar clamp in position until the cement hardened. As we were awaiting this we pulse linares irrigated out the knee joint, made sure there was no cement in the notch, placed tranexamic acid into the knee, then began closing the apex of the arthrotomy with two #1 PDS sutures. The medial parapatellar area was closed with a #1 PDS suture and then a running double- armed Stratafix used to close the capsule. The tourniquet was then released. We copiously irrigated between layers, closed deep subdermal tissues with interrupted 2-0 PDS sutures. The skin was closed with yue and covered with an Optifoam and dry sterile bulky dressing. Then the patient was transferred to the recovery room in stable condition. There were no intraoperative complications. JAS
--- NOTE | 2020-01-12 08:56 | DS ---
DATE OF ADMISSION: 12/01/2019 DATE OF DISCHARGE: 12/02/2019 ATTENDING: Dr. Michael Godoy MD ADMITTING DIAGNOSIS: Osteoarthritis right knee. OTHER DIAGNOSES INCLUDE: * Seasonal allergies. * Hypertension. * Sleep apnea. * Obesity. * Elevated lipids. * Depression. DISCHARGE DIAGNOSIS: Osteoarthritis right knee status post right total knee arthroplasty. OPERATIONS PERFORMED: Right total knee arthroplasty. HISTORY: A 59-year-old male patient with progressively worsening right knee pain and stiffness. He failed to improve with conservative management. He is admitted for elective knee replacement on the right side. HOSPITAL COURSE: The patient was admitted on the day of surgery. He underwent a right total knee arthroplasty which was uneventful. He did well in the postoperative period and his hospital course was without complications. He was up with physical therapy. His pain was controlled on the day of discharge and he was weightbearing as tolerated on the right lower extremity. He may use oral pain medications for pain control. He will Aspirin 81 mg twice a day for deep venous thrombosis (DVT) prophylaxis per protocol. He will also use thromboembolic deterrent (MARYA) stockings for 30 days postoperatively for DVT prophylaxis. He will resume his preoperative medications and diet. He was given instructions to including but not limited to monitoring activity limitations. Please refer to the medical record for further details. JAS
== END 2019-12-02 13:00 | disposition home health service (06) | DRG 302 ==
LOC: M OR 08:35 → M MS5PR 14:55
PROVIDERS: ADMIT Orthopaedic Surgery; ATTEND Orthopaedic Surgery
PROC: 0SRC0J9 Replacement of Right Knee Joint with Synthetic Substitute, Cemented, Open Approach (ICD-10-PCS; principal; 2019-12-01 11:00)
DX: M17.11 Unilateral primary osteoarthritis, right knee (principal); I10 Essential (primary) hypertension; J30.2 Other seasonal allergic rhinitis; E78.5 Hyperlipidemia, unspecified; F32.9 Major depressive disorder, single episode, unspecified; G47.33 Obstructive sleep apnea (adult) (pediatric); R26.89 Other abnormalities of gait and mobility; Z96.652 Presence of left artificial knee joint; Z79.891 Long term (current) use of opiate analgesic

== ENCOUNTER → 2019-12-30 | Outpatient (CLI) | payer OTHER, BC ==
[~2019-12-30] MED LIST changes: +ECOT81TA5 PO; -LR 1,000 ML IV ONE; -MIDAZOLAM INJ 2MG/2ML VIAL (J2250 PER 1MG) IV SCH
== END ==
LOC: M RAD 14:56
PROVIDERS: ATTEND Physician Assistant Surgical
DX: M79.661 Pain in right lower leg (principal)

== ENCOUNTER → 2020-05-25 | Outpatient (CLI) | payer OTHER, BC ==
[2020-05-25 15:10] LABS: BASO % 0.5 % (0.0-1.0); EOS # 0.1 10^3/uL (0.0-0.5); EOS % 1.8 % (0.0-3.0); HEMATOCRIT 48.5 % (42.0-52.0); HEMOGLOBIN 16.1 g/dl (13.5-17.5); LYMPH % 30.6 % (24.0-44.0); MEAN CORPUSCULAR HEMOGLOBIN 30.6 pg (27.0-33.0); MEAN CORPUSCULAR HGB CONC 33.2 g/dl (32.0-36.5); MEAN CORPUSCULAR VOLUME 92.2 fl (80.0-96.0); MONO # 0.7 10^3/uL (0.0-0.8); MONO % 9.9 % (2.0-8.0); NEUTROPHILS # 3.8 10^3/uL (1.5-8.5); NEUTROPHILS % 56.9 % (36.0-66.0); PLATELET COUNT, AUTOMATED 180 10^3/uL (150-450); RED BLOOD COUNT 5.26 10^6/uL (4.30-6.10); WHITE BLOOD COUNT 6.6 10^3/uL (4.0-10.0)
[2020-05-25 15:41] LABS: ERYTHROCYTE SEDIMENTATION RATE 7 mm/hr (0-20)
== END ==
LOC: M LAB 14:50
PROVIDERS: ATTEND Orthopaedic Surgery
DX: M25.561 Pain in right knee (principal)

== ENCOUNTER → 2020-08-12 | Outpatient (CLI) | payer OTHER ==
--- NOTE | 2020-08-12 16:01 | REP ---
INDICATION: RT KNEE PAIN TOTAL RT KNEE DONE 12/01/19. Evaluate posterior calf pain. COMPARISON: Comparison radiographs of the right knee are from 02 April 2020.. TECHNIQUE: Axial, coronal and sagittal imaging planes utilized. T1, proton density and T2 weighted scans are obtained in the usual fashion with without fat saturation. Metal artifact reduction techniques were deployed FINDINGS: There is substantial magnetic field susceptibility artifact emanating from the total knee arthroplasty components obscuring the joint line articulation and the adjacent soft tissues on each sequence obtained. The quadriceps and patellar tendons are seen and appear intact. The lateral aspect of the knee shows an intact iliotibial band. Medial collateral ligament and the lateral collateral ligaments cannot otherwise be commented on. The periarticular soft tissues are unremarkable. No cyst or mass is seen. There is a small quantity of fluid signal intensity in the region of the suprapatellar bursa. Above the artifact, cortical and medullary bone signal intensity are normal in the distal femur, proximal tibia, proximal fibula, and patella. The visualized distal thigh and proximal calf soft tissues are unremarkable. IMPRESSION: Status post right knee arthroplasty with considerable metallic susceptibility field artifact limiting visualization. <Electronically signed by Jesus Calvo > 08/12/20 [id number]
== END ==
LOC: M RAD 13:30
PROVIDERS: ATTEND Orthopaedic Surgery
DX: Z96.651 Presence of right artificial knee joint (principal); M25.561 Pain in right knee

== ENCOUNTER → 2021-02-08 | Outpatient (CLI) | payer BC ==
[~2021-02-08] MED LIST changes: -IBUP200T45 PO; +IBUP200T46 PO
[2021-02-08 10:37] LABS: BLOOD UREA NITROGEN 12 MG/DL (7-18); CREATININE FOR GFR 0.92 MG/DL (0.70-1.30); GLOMERULAR FILTRATION RATE > 60.0 (>49)
== END ==
LOC: M LAB 09:18
PROVIDERS: ATTEND Psychiatry & Neurology Neurology
DX: I10 Essential (primary) hypertension (principal)

== ENCOUNTER → 2021-05-04 | Outpatient (CLI) | payer BC, OTHER ==
[~2021-05-04] MED LIST changes: +LIDOCAINE 1% MDV 20ML VIAL As Ordered ONE; +LOSA100T45 PO; -LOSA100T50 PO; +TRIAMCINOLONE ACETONIDE SUSP 40 MG/ML VIAL (J3301) As Ordered ONE
== END ==
LOC: M IRPRO 12:48
PROVIDERS: ATTEND Orthopaedic Surgery
DX: M25.561 Pain in right knee (principal)
CPT/HCPCS: 20551; 76942; J3301

== ENCOUNTER → 2022-02-16 | Outpatient (CLI) | payer BC ==
[~2022-02-16] MED LIST changes: -LIDOCAINE 1% MDV 20ML VIAL As Ordered ONE; -TRIAMCINOLONE ACETONIDE SUSP 40 MG/ML VIAL (J3301) As Ordered ONE
[2022-02-16 12:03] LABS: ALBUMIN 3.7 G/DL (3.2-5.2); ALKALINE PHOSPHATASE 89 U/L (46-116); ALT/SGPT 46 U/L (7.0-40); AST/SGOT 37 U/L (<34); BILIRUBIN,TOTAL 0.5 MG/DL (0.3-1.2); BLOOD UREA NITROGEN 14 MG/DL (9-23); CALCIUM LEVEL 9.1 MG/DL (8.3-10.6); CARBON DIOXIDE LEVEL 25 MMOL/L (20-31); CHLORIDE LEVEL 105 MMOL/L (98-107); CHOLESTEROL LEVEL 192 MG/DL (<200); CHOLESTEROL RISK RATIO 5.28 (<5); CREATININE FOR GFR 0.81 MG/DL (0.70-1.30); GLOMERULAR FILTRATION RATE > 60.0 (>49); GLUCOSE, FASTING 148 MG/DL (74-106); HDL CHOLESTEROL 36.3 MG/DL (>40); LDL CHOLESTEROL 108.1 MG/DL (<100); NON-HDL-C 156 MG/DL; POTASSIUM SERUM 4.4 MMOL/L (3.5-5.1); SODIUM LEVEL 139 MMOL/L (136-145); TOTAL PROTEIN 7.1 G/DL (5.7-8.2); TRIGLYCERIDES LEVEL 238 MG/DL (<150)
== END ==
LOC: M LAB 09:51
PROVIDERS: ATTEND Family Medicine
DX: F32.2 Major depressive disorder, single episode, severe without psychotic features (principal); I10 Essential (primary) hypertension; E78.2 Mixed hyperlipidemia; R73.9 Hyperglycemia, unspecified

== ENCOUNTER → 2022-08-25 | Outpatient (CLI) | payer BC ==
[~2022-08-25] MED LIST changes: -LOSA100T45 PO; +LOSA100T46 PO
[2022-08-25 14:07] LABS: THYROID STIMULATING HORMONE 2.014 uIU/ML (0.55-4.78)
[2022-08-25 14:08] LABS: FOLATE > 24.0 NG/ML (>5.4)
[2022-08-25 14:09] LABS: VITAMIN B12 LEVEL 710 PG/ML (211-911)
== END ==
LOC: M LAB 12:00
DX: E53.8 Deficiency of other specified B group vitamins (principal); E55.9 Vitamin D deficiency, unspecified; R41.3 Other amnesia; E51.9 Thiamine deficiency, unspecified; E53.1 Pyridoxine deficiency; E56.0 Deficiency of vitamin E

== ENCOUNTER 2023-04-23 07:46 | Day surgery (SDC) | payer MEDICARE ==
[~2023-04-23] VITALS: Ht 188 cm; Wt 132.9 kg
[~2023-04-23 07:46] MED LIST changes: +CYCL1DRO10 OU; +LIDOCAINE 2% 100MG/5ML SDV (FOR ANES.) As Ordered ONE; +VENL150C43 PO; +XALA0.007 OU; +propofoL 200 MG/20 ML VIAL As Ordered ONE
[2023-04-23] MEDS: NS 1,000 ML IV ONE (08:02)
[2023-04-23 09:45] VITALS: TEMP 98.1
[2023-04-23 10:00] VITALS: BP 141/84; O2SAT 94
== END 2023-04-23 10:09 | disposition home or self-care (01) ==
LOC: M OPP 07:46
PROVIDERS: ATTEND Internal Medicine Gastroenterology
DX: Z86.010 Personal history of colon polyps (principal); Z80.0 Family history of malignant neoplasm of digestive organs; D12.4 Benign neoplasm of descending colon; K63.5 Polyp of colon; K64.8 Other hemorrhoids; K57.30 Diverticulosis of large intestine without perforation or abscess without bleeding; G47.30 Sleep apnea, unspecified; Z99.89 Dependence on other enabling machines and devices; Z79.621 Long term (current) use of calcineurin inhibitor; Z79.899 Other long term (current) drug therapy

== ENCOUNTER → 2025-02-03 | Outpatient (CLI) | payer MEDICARE ==
[~2025-02-03] MED LIST changes: -LIDOCAINE 2% 100MG/5ML SDV (FOR ANES.) As Ordered ONE; +METHACHOLINE KIT (6 VIAL.NEB PREMIX) INH ONE; +MORP-138 PO; -MORP15TASA PO; -propofoL 200 MG/20 ML VIAL As Ordered ONE
== END ==
LOC: M CARPUL 09:32
PROVIDERS: ATTEND Physician Assistant
DX: R06.02 Shortness of breath (principal); R05.9 Cough, unspecified
CPT/HCPCS: 71046; 94070; 95070; J7674